=== PATIENT | male | born 1945 | race Caucasian/White ===

== ENCOUNTER → 2018-01-28 | Day surgery (SDC) | payer MEDICARE, OTHER ==
[~2018-01-28] MED LIST: LACTATED RINGERS 1,000 ML IV SCH; PROPOFOL 10 MG/ML 20 ML VIAL IV ONE
[2018-01-28 13:44] VITALS: TEMP 97.8
--- NOTE | 2018-01-28 14:39 | P.PCN ---
Date of Procedure: 01/28/18 Procedure(s) Performed: Procedure: Total colonoscopy. Preoperative diagnosis: Screening for neoplasia, patient has history of polyps. Postoperative diagnosis: Mild sigmoid diverticulosis with no evidence of acute diverticulitis, strictures, polyps or cancer. Preparation: HalfLytely prep. Sedation: Was provided by anesthesia. Brief clinical history: The patient is a 72-year-old male who is scheduled for this evaluation because of history of polyps. His last exam was in November 2012. The patient has no abdominal complaints, bleeding or anemia. Procedure: With the patient on his left lateral decubitus position and after informed consent and adequate sedation, the perianal area was inspected and it did not show any fissures or fistulas. There were no masses felt on digital rectal examination. The Olympus CFQ 160 L videocolonoscope was then inserted in the rectum in the usual fashion and advanced to the cecum. There was occasional small diverticular orifices seen scattered in the sigmoid with no evidence of acute diverticulitis or strictures. The mucosa appeared healthy. No polyps or tumors were seen. I retroflexed the endoscope in the rectum before the endoscope was withdrawn. The patient tolerated the procedure well. Plan: The patient was reassured. Discussed dietary measures. He will follow up with you as planned and I recommended repeat exam in 5 years.
[2018-01-28 14:54] VITALS: RESP 18
[2018-01-28 15:05] VITALS: BP 122/79; PULSE 60
== END ==
LOC: ORWHC2ENDO 11:58
DX: Z12.11 Encounter for screening for malignant neoplasm of colon (principal); K57.30 Diverticulosis of large intestine without perforation or abscess without bleeding; Z86.010 Personal history of colon polyps; I10 Essential (primary) hypertension; Z88.0 Allergy status to penicillin; Z79.899 Other long term (current) drug therapy
CPT/HCPCS: J2704; G0105; 45378

== ENCOUNTER 2019-11-27 16:13 | Inpatient (IN) | payer MEDICARE, OTHER ==
[2019-11-27] MEDS ORDERED: METOPROLOL TARTRATE 5 MG/5 ML VIAL IVP STA (17:13)
[2019-11-27] MEDS ORDERED: SODIUM CHLORIDE 0.9% 1,000 ML IV STA (17:13)
[2019-11-27 17:37] LABS: Basophils # (A) 0.1 k/uL (0-0.2); Basophils % (A) 1 %; Eosinophils # (A) 0.2 k/uL (0-0.7); Eosinophils % (A) 1 %; HCT 48.2 % (39.0-53.0); HGB 16.5 gm/dL (13.0-17.5); Lymphocytes # (A) 1.3 k/uL (1.0-4.8); Lymphocytes % (A) 13 %; MCH 31.8 pg (25.0-35.0); MCHC 34.2 g/dL (31.0-37.0); MCV 92.9 fL (80.0-100.0); Mean Platelet Volume 8.1; Monocytes # (A) 0.5 k/uL (0-1.0); Monocytes % (A) 5 %; Neutrophils # (A) 8.2 k/uL (1.3-7.7); Neutrophils % (A) 79 %; Platelet Count 164 k/uL (150-450); RBC 5.19 m/uL (4.30-5.90); RDW 12.7 % (11.5-15.5); WBC 10.3 k/uL (3.8-10.6)
--- NOTE | 2019-11-27 17:41 | ED ---
Arrhythmia/Palpitations HPI - General Chief Complaint: Arrhythmia/Palpitations Stated Complaint: AFIB Time Seen by Provider: 11/27/19 16:19 Source: patient Mode of arrival: EMS Limitations: no limitations - History of Present Illness Initial Comments: This is a 73-year-old male here for evaluation history of high blood pressure no significant medication changes. Patient has no pain coming with a near-syncopal event prior to arrival. Seen at primary care as EKG is found to be in A. fib with RVR patient felt severe distress lightheaded dizzy and weak by primary care comes in the exudate upon arrival to ER A. fib has resolved patient feels better and has no exact current complaints. No recent travel history or sick contacts denies drug or alcohol abuse MD Complaint: "skipped beats", palpitations, irregular heart beat -: minutes(s) Context: occurred during rest Arrhythmia History: other (No prior history) Associated Symptoms: shortness of breath, near-syncope Treatments Prior to Arrival: other (Patient converted spontaneously) - Related Data Home Medications Medication Instructions Recorded Confirmed Enalapril/Hydrochlorothiazide 20 mg PO DAILY 01/28/18 01/28/18 [Enalapril-Hctz 10-25 mg Tablet] Multivitamin [Men's Multi-Vitamin] 1 tab PO DAILY 01/28/18 01/28/18 Allergies Allergy/AdvReac Type Severity Reaction Status Date / Time Penicillins Allergy Unknown Verified 11/27/19 16:25 Childhood Review of Systems ROS Statement: Those systems with pertinent positive or pertinent negative responses have been documented in the HPI. ROS Other: All systems not noted in ROS Statement are negative. Past Medical History Past Medical History: Hypertension Additional Past Medical History / Comment(s): SEASONAL ALLERGIES History of Any Multi-Drug Resistant Organisms: None Reported Past Surgical History: Tonsillectomy Past Anesthesia/Blood Transfusion Reactions: No Reported Reaction Past Psychological History: No Psychological Hx Reported Smoking Status: Former smoker Past Alcohol Use History: None Reported Past Drug Use History: None Reported - Past Family History Mother Family Medical History: Cancer Father Family Medical History: Diabetes Mellitus Additional Family Medical History / Comment(s): PATIENT STATES FATHER OF AN ANEURYSM General Exam Limitations: no limitations General appearance: alert, in no apparent distress Head exam: Present: atraumatic, normocephalic, normal inspection Eye exam: Present: normal appearance, PERRL, EOMI. Absent: scleral icterus, conjunctival injection, periorbital swelling ENT exam: Present: normal exam, mucous membranes moist Neck exam: Present: normal inspection. Absent: tenderness, meningismus, lymphadenopathy Respiratory exam: Present: normal lung sounds bilaterally. Absent: respiratory distress, wheezes, rales, rhonchi, stridor Cardiovascular Exam: Present: regular rate, normal rhythm, normal heart sounds. Absent: systolic murmur, diastolic murmur, rubs, gallop, clicks GI/Abdominal exam: Present: soft, normal bowel sounds. Absent: distended, tenderness, guarding, rebound, rigid Extremities exam: Present: normal inspection, full ROM, normal capillary refill. Absent: tenderness, pedal edema, joint swelling, calf tenderness Back exam: Present: normal inspection Neurological exam: Present: alert, oriented X3, CN II-XII intact Psychiatric exam: Present: normal affect, normal mood Skin exam: Present: warm, dry, intact, normal color. Absent: rash Course Vital Signs 11/27/19 11/27/19 16:23 18:00 Temperature 98.3 F Pulse Rate 88 72 Respiratory 18 18 Rate Blood Pressure 141/82 104/61 O2 Sat by Pulse 99 95 Oximetry - Reevaluation(s) Reevaluation #1: 11/27/19 18:30 medical record including prehospital EKG reviewed EKG shows A. fib with RVR Reevaluation #2: 11/27/19 18:30 Patient remains not in nature fibrillation, normal sinus rhythm - Consultations Consultation #1: spoke w SOund ok for admission Medical Decision Making - Medical Decision Making 73 male to be evaluated regarding new onset atrial fibrillation, he was in atrial fibrillation with RVR prior to arrival with a near syncopal event, here in the ER and remained in sinus rhythm will admit for cardiology to evaluate - Lab Data Result diagrams: 11/27/19 16:25 11/27/19 16:25 Lab Results 11/27/19 11/27/19 11/27/19 Range/Units 16:25 16:25 16:25 WBC 10.3 (3.8-10.6) k/uL RBC 5.19 (4.30-5.90) m/uL Hgb 16.5 (13.0-17.5) gm/dL Hct 48.2 (39.0-53.0) % MCV 92.9 (80.0-100.0) fL MCH 31.8 (25.0-35.0) pg MCHC 34.2 (31.0-37.0) g/dL RDW 12.7 (11.5-15.5) % Plt Count 164 (150-450) k/uL Neutrophils % 79 % Lymphocytes % 13 % Monocytes % 5 % Eosinophils % 1 % Basophils % 1 % Neutrophils # 8.2 H (1.3-7.7) k/uL Lymphocytes # 1.3 (1.0-4.8) k/uL Monocytes # 0.5 (0-1.0) k/uL Eosinophils # 0.2 (0-0.7) k/uL Basophils # 0.1 (0-0.2) k/uL PT (9.0-12.0) sec INR (<1.2) APTT (22.0-30.0) sec Sodium 142 (137-145) mmol/L Potassium 3.7 (3.5-5.1) mmol/L Chloride 104 (98-107) mmol/L Carbon Dioxide 29 (22-30) mmol/L Anion Gap 9 mmol/L BUN 25 H (9-20) mg/dL Creatinine 0.94 (0.66-1.25) mg/dL Est GFR (CKD-EPI)AfAm >90 (>60 ml/min/1.73 sqM) Est GFR (CKD-EPI)NonAf 81 (>60 ml/min/1.73 sqM) Glucose 82 (74-99) mg/dL Calcium 9.4 (8.4-10.2) mg/dL Magnesium 2.1 (1.6-2.3) mg/dL Total Bilirubin 0.6 (0.2-1.3) mg/dL AST 29 (17-59) U/L ALT 28 (4-49) U/L Alkaline Phosphatase 57 (38-126) U/L Creatine Kinase 123 (55-170) U/L CK-MB (CK-2) 2.2 (0.0-2.4) ng/mL Troponin I 0.017 (0.000-0.034) ng/mL Total Protein 7.5 (6.3-8.2) g/dL Albumin 4.5 (3.5-5.0) g/dL TSH 5.270 H (0.465-4.680) mIU/L 11/27/19 Range/Units 16:25 WBC (3.8-10.6) k/uL RBC (4.30-5.90) m/uL Hgb (13.0-17.5) gm/dL Hct (39.0-53.0) % MCV (80.0-100.0) fL MCH (25.0-35.0) pg MCHC (31.0-37.0) g/dL RDW (11.5-15.5) % Plt Count (150-450) k/uL Neutrophils % % Lymphocytes % % Monocytes % % Eosinophils % % Basophils % % Neutrophils # (1.3-7.7) k/uL Lymphocytes # (1.0-4.8) k/uL Monocytes # (0-1.0) k/uL Eosinophils # (0-0.7) k/uL Basophils # (0-0.2) k/uL PT 10.4 (9.0-12.0) sec INR 1.0 (<1.2) APTT 24.9 (22.0-30.0) sec Sodium (137-145) mmol/L Potassium (3.5-5.1) mmol/L Chloride (98-107) mmol/L Carbon Dioxide (22-30) mmol/L Anion Gap mmol/L BUN (9-20) mg/dL Creatinine (0.66-1.25) mg/dL Est GFR (CKD-EPI)AfAm (>60 ml/min/1.73 sqM) Est GFR (CKD-EPI)NonAf (>60 ml/min/1.73 sqM) Glucose (74-99) mg/dL Calcium (8.4-10.2) mg/dL Magnesium (1.6-2.3) mg/dL Total Bilirubin (0.2-1.3) mg/dL AST (17-59) U/L ALT (4-49) U/L Alkaline Phosphatase (38-126) U/L Creatine Kinase (55-170) U/L CK-MB (CK-2) (0.0-2.4) ng/mL Troponin I (0.000-0.034) ng/mL Total Protein (6.3-8.2) g/dL Albumin (3.5-5.0) g/dL TSH (0.465-4.680) mIU/L - Radiology Data Radiology results: report reviewed (Chest x-rays negative for acute disease), image reviewed Disposition Clinical Impression: Atrial fibrillation, Atrial fibrillation with RVR, Near syncope Disposition: ADMITTED IP TO THIS [facility] Condition: Good Is patient prescribed a controlled substance at d/c from ED?: No Referrals: Elvira José DO [Primary Care Provider] - 1-2 days
[2019-11-27 17:43] LABS: Partial Thromboplastin Time 24.9 sec (22.0-30.0); Prothrombin Time 10.4 sec (9.0-12.0)
[2019-11-27 17:44] LABS: ALT 28 U/L (4-49); AST 29 U/L (17-59); African American GFR (CKD) >90 (>60 ml/min/1.73 sqM); Albumin 4.5 g/dL (3.5-5.0); Alkaline Phosphatase 57 U/L (38-126); Anion Gap 9 mmol/L; Blood Urea Nitrogen 25 mg/dL (9-20); Calcium 9.4 mg/dL (8.4-10.2); Carbon Dioxide 29 mmol/L (22-30); Chloride 104 mmol/L (98-107); Creatine Kinase 123 U/L (55-170); Glucose 82 mg/dL (74-99); Magnesium 2.1 mg/dL (1.6-2.3); Non-African American GFR(CKD) 81 (>60 ml/min/1.73 sqM); Potassium 3.7 mmol/L (3.5-5.1); Sodium 142 mmol/L (137-145); Total Bilirubin 0.6 mg/dL (0.2-1.3); Total Protein 7.5 g/dL (6.3-8.2)
--- NOTE | 2019-11-27 17:56 | XR ---
EXAMINATION: XR chest 2V DATE AND TIME: 11/27/2019 5:34 PM CLINICAL INDICATION: PHH; dysrhythmia TECHNIQUE: Departmental protocol COMPARISON: None FINDINGS: The lungs are clear. The pleural spaces are negative. The cardiac silhouette is not enlarged. The remainder of the mediastinal silhouette is unremarkable. The skeletal structures and soft tissues are negative for acute findings. IMPRESSION: NO ACUTE PROCESS.
[2019-11-27 18:09] LABS: Creatine Kinase MB 2.2 ng/mL (0.0-2.4); Troponin I 0.017 ng/mL (0.000-0.034)
[2019-11-27] MEDS ORDERED: NITROGLYCERIN SL TABS 0.4 MG TAB SUBLINGUAL PRN (18:28)
[2019-11-27] MEDS ORDERED: ASPIRIN 81 MG PO STA (18:28)
[2019-11-27] MEDS ORDERED: HEPARIN SODIUM,PORCINE 5,000 UNIT/ML 1 ML VIAL IV ONE (18:28)
[2019-11-27] MEDS: HEPARIN SOD,PORK IN 0.45% NACL 25,000 UNIT in 0.45% NACL 1 250ML.BAG IV SCH (22:15)
[2019-11-27] MEDS: SODIUM CHLORIDE 0.9% 1,000 ML IV SCH (22:16)
[2019-11-27] MEDS: METOPROLOL TARTRATE 50 MG TAB PO SCH (22:59)
[2019-11-28] MEDS: SODIUM CHLORIDE 0.9% 1,000 ML IV SCH ×2 (05:39→14:51)
[2019-11-28 06:06] LABS: Mean Platelet Volume 7.6; Platelet Count 140 k/uL (150-450)
[2019-11-28 06:18] LABS: Cholesterol 188 mg/dL (<200); HDL Cholesterol 30 mg/dL (40-60); LDL Cholesterol,Calculated 126 mg/dL (0-99); Triglycerides 158 mg/dL (<150)
[2019-11-28] MEDS: HEPARIN SODIUM,PORCINE 5,000 UNIT/ML 1 ML VIAL IV PRN ×2 (06:41→14:21)
[2019-11-28] MEDS: METOPROLOL TARTRATE 50 MG TAB PO SCH ×2 (08:28→21:55)
[2019-11-28] MEDS: ASPIRIN 325 MG TAB PO SCH (08:28)
--- NOTE | 2019-11-28 10:29 | P.HPIM ---
History of Present Illness This is a pleasant 73 years old male with past medical history of hypertension. He is a patient of Dr. Topete. 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 He denies chest pain or other dyspnea. No abdominal pain, no nausea vomiting. No fever. No coughing. He went home and checked blood pressure was fine but he notices heart rate was on the high side at 101 so he decided to see his primary care doctor who did EKG showed A. fib and for him to emergency room, repeat EKG in ED shows sinus rhythm He denies smoking or illicit drugs, occasional alcohol Vitals look stable. Monitor showing unremarkable CBC, BMP, INR, liver enzymes. Serial troponins are negative at 0.017, 0.0-6 and 0.016. Edges elevated at 5.2, T4 is pending. EKG showing normal sinus rhythm at [address]-T changes and QTC of 383. Chest x-ray: No acute process. In the emergency room patient got metoprolol 1 and started on heparin drip Review of Systems CONSTITUTIONAL: No fever, no malaise, no fatigue. HEENT: No recent visual problems or hearing problems. Denied any sore throat. CARDIOVASCULAR: No orthopnea, PND, no palpitations, no syncope. PULMONARY: No shortness of breath, no cough, no hemoptysis. GASTROINTESTINAL: No diarrhea, no nausea, no vomiting, no abdominal pain. Normoactive bowel sounds. NEUROLOGICAL: No headaches, no weakness, no numbness. HEMATOLOGICAL: Denies any bleeding or petechiae. GENITOURINARY: Denies any burning micturition, frequency, or urgency. MUSCULOSKELETAL/RHEUMATOLOGICAL: Denies any joint pain, swelling, or any muscle pain. ENDOCRINE: Denies any polyuria or polydipsia. Past Medical History Past Medical History: Hypertension Additional Past Medical History / Comment(s): SEASONAL ALLERGIES History of Any Multi-Drug Resistant Organisms: None Reported Past Surgical History: Tonsillectomy Past Anesthesia/Blood Transfusion Reactions: No Reported Reaction Past Psychological History: No Psychological Hx Reported Smoking Status: Former smoker Past Alcohol Use History: None Reported Past Drug Use History: None Reported Additional Drug Use History / Comment(s): PATIENT STATES HE QUIT SMOKING IN 1984 - Past Family History Mother Family Medical History: Cancer Father Family Medical History: Diabetes Mellitus Additional Family Medical History / Comment(s): PATIENT STATES FATHER OF AN ANEURYSM Medications and Allergies Home Medications Medication Instructions Recorded Confirmed Type Enalapril/Hydrochlorothiazide 20 mg PO DAILY 01/28/18 11/27/19 History [Enalapril-Hctz 10-25 mg Tablet] Multivitamin [Men's Multi-Vitamin] 1 tab PO DAILY 01/28/18 11/27/19 History Allergies Allergy/AdvReac Type Severity Reaction Status Date / Time Penicillins Allergy Unknown Verified 11/27/19 19:23 Childhood Physical Exam Vitals: Vital Signs Temp Pulse Pulse Resp BP BP Pulse Ox 11/28/19 07:47 97.6 F 65 18 120/84 96 11/28/19 04:59 97.9 F 66 18 114/67 98 11/28/19 02:21 98.0 F 53 L 16 117/87 99 11/28/19 00:00 97.9 F 55 L 18 111/89 97 11/27/19 20:00 97.0 F L 53 L 18 101/80 99 11/27/19 19:00 58 L 18 109/64 97 11/27/19 18:00 72 18 104/61 95 11/27/19 16:23 98.3 F 88 18 141/82 99 Intake and Output 11/27/19 11/28/19 11/28/19 22:59 06:59 14:59 Intake Total 240 84.382 Balance 240 84.382 Intake: Intake, IV Titration 84.382 Amount Heparin Sod,Pork in 0.45% 84.382 NaCl 25,000 unit In 0.45 % NaCl 1 250ml.bag @ 11.9 UNITS/KG/HR 9.986 mls/hr IV .Q24H [facility] Rx#: [id number] Oral 240 Other: Voiding Method Toilet Toilet # Voids 1 Weight 83.915 kg 83.915 kg GENERAL: The patient is alert and oriented x3, not in any acute distress. Well developed, well nourished. HEENT: Pupils are round and equally reacting to light. EOMI. No scleral icterus. No conjunctival pallor. Normocephalic, atraumatic. No pharyngeal erythema. No thyromegaly. CARDIOVASCULAR: S1 and S2 present. No murmurs, rubs, or gallops. PULMONARY: Chest is clear to auscultation, no wheezing or crackles. ABDOMEN: Soft, nontender, nondistended, normoactive bowel sounds. No palpable organomegaly. MUSCULOSKELETAL: No joint swelling or deformity. EXTREMITIES: No cyanosis, clubbing, or pedal edema. NEUROLOGICAL: Gross neurological examination did not reveal any focal deficits. SKIN: No rashes. No petechiae Results CBC & Chem 7: 11/28/19 05:37 11/27/19 16:25 Labs: Abnormal Lab Results - Last 24 Hours (Table) 11/27/19 11/27/19 11/28/19 Range/Units 16:25 16:25 05:37 Plt Count 140 L (150-450) k/uL Neutrophils # 8.2 H (1.3-7.7) k/uL BUN 25 H (9-20) mg/dL Triglycerides (<150) mg/dL LDL Cholesterol, Calc (0-99) mg/dL HDL Cholesterol (40-60) mg/dL TSH 5.270 H (0.465-4.680) mIU/L 11/28/19 Range/Units 05:37 Plt Count (150-450) k/uL Neutrophils # (1.3-7.7) k/uL BUN (9-20) mg/dL Triglycerides 158 H (<150) mg/dL LDL Cholesterol, Calc 126 H (0-99) mg/dL HDL Cholesterol 30 L (40-60) mg/dL TSH (0.465-4.680) mIU/L Thrombosis Risk Factor Assmnt - Choose All That Apply Each Factor Represents 1 point: Obesity (BMI >25) Each Risk Factor Represents 2 Points: Age 61-74 years Thrombosis Risk Factor Assessment Total Risk Factor Score: 3 Thrombosis Risk Factor Assessment Level: Moderate Risk Assessment and Plan Assessment: New onset of paroxysmal A. fib and RVR Presyncope, secondary to above Hypertension Plan: This is a pleasant 73 years old male who presents with new onset A. fib. Continue with heparin drip, continue with beta tohsia. Cardiology consult Labs and medication were reviewed.. Continue same treatment. Continue with symptomatic treatment. Resume home medication. Monitor lytes and vitals. DVT and GI prophylaxis. Further recommendations of the clinical course of the patient DVT prophylaxis: heparin GI Prophylaxis: Pepcid PT/OT: Pending Prognosis is guarded
[2019-11-28] MEDS: HEPARIN SOD,PORK IN 0.45% NACL 25,000 UNIT in 0.45% NACL 1 250ML.BAG IV SCH ×2 (14:54→21:55)
[2019-11-29] MEDS: SODIUM CHLORIDE 0.9% 1,000 ML IV SCH ×3 (00:47→21:26)
[2019-11-29 03:58] LABS: Basophils % (A) 1 %; Eosinophils # (A) 0.2 k/uL (0-0.7); Eosinophils % (A) 3 %; HCT 45.3 % (39.0-53.0); HGB 14.7 gm/dL (13.0-17.5); Lymphocytes # (A) 1.6 k/uL (1.0-4.8); Lymphocytes % (A) 22 %; MCHC 32.4 g/dL (31.0-37.0); MCV 92.6 fL (80.0-100.0); Mean Platelet Volume 8.1; Monocytes # (A) 0.4 k/uL (0-1.0); Monocytes % (A) 6 %; Neutrophils # (A) 4.9 k/uL (1.3-7.7); Neutrophils % (A) 66 %; Platelet Count 148 k/uL (150-450); RBC 4.89 m/uL (4.30-5.90); RDW 12.7 % (11.5-15.5); WBC 7.4 k/uL (3.8-10.6)
[2019-11-29] MEDS: HEPARIN SODIUM,PORCINE 5,000 UNIT/ML 1 ML VIAL IV PRN (04:15)
[2019-11-29 04:30] LABS: T4, Free (Free Thyroxine) 0.77 ng/dL (0.78-2.19)
[2019-11-29] MEDS: ASPIRIN 325 MG TAB PO SCH (08:35)
[2019-11-29] MEDS: METOPROLOL TARTRATE 50 MG TAB PO SCH (08:35)
[2019-11-29] MEDS ORDERED: APIXABAN 5 MG TAB PO SCH (10:00)
[2019-11-29] MEDS ORDERED: HEPARIN SODIUM,PORCINE 5,000 UNIT/ML 1 ML VIAL IV PRN (12:22)
--- NOTE | 2019-11-29 13:28 | P.PN ---
Subjective This is a pleasant 73 years old male with past medical history of hypertension. He is a patient of Dr. Topete. 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 He denies chest pain or other dyspnea. No abdominal pain, no nausea vomiting. No fever. No coughing. He went home and checked blood pressure was fine but he notices heart rate was on the high side at 101 so he decided to see his primary care doctor who did EKG showed A. fib and for him to emergency room, repeat EKG in ED shows sinus rhythm He denies smoking or illicit drugs, occasional alcohol Vitals look stable. Monitor showing unremarkable CBC, BMP, INR, liver enzymes. Serial troponins are negative at 0.017, 0.0-6 and 0.016. Edges elevated at 5.2, T4 is pending. EKG showing normal sinus rhythm at [address]-T changes and QTC of 383. Chest x-ray: No acute process. In the emergency room patient got metoprolol 1 and started on heparin drip 11/29/2019 Patient with no chest pain or dyspnea, no presyncope or other episodes of passing out. Let us look stable, heart rate is 59, patient is afebrile. CBC showing a stable hemoglobin at 14.7, platelets 148. She is normal at 7.14. PTT is at therapeutic range of 63.1 per protoco as patient is currently on heparin drip. His BMP and electrolytes were unremarkable, creatinine is normal. Liver enzymes not elevated. Serial troponins are negative. His TSH yesterday was mildly elevated at 5.2, repeat TSH today is 7.5 with free T4 is low at 0.7. Triglycerides mildly elevated 158, LDL 126. Cardiology team on consult. Review of systems: CONSTITUTIONAL: No fever, no malaise, no fatigue. HEENT: No recent visual problems or hearing problems. Denied any sore throat. CARDIOVASCULAR: No orthopnea, PND, no palpitations, no syncope. PULMONARY: No shortness of breath, no cough, no hemoptysis. GASTROINTESTINAL: No diarrhea, no nausea, no vomiting, no abdominal pain. Normoactive bowel sounds. NEUROLOGICAL: No headaches, no weakness, no numbness. HEMATOLOGICAL: Denies any bleeding or petechiae. GENITOURINARY: Denies any burning micturition, frequency, or urgency. MUSCULOSKELETAL/RHEUMATOLOGICAL: Denies any joint pain, swelling, or any muscle pain. ENDOCRINE: Denies any polyuria or polydipsia. Active Medications Generic Name Dose Route Start Last Admin Trade Name Bcq PRN Reason Stop Dose Admin Aspirin 325 mg 11/28/19 09:00 11/29/19 08:35 Aspirin PO 325 mg DAILY [facility] Administration Heparin Sodium (Porcine) 0 unit 11/29/19 12:22 Heparin IV PER PROTOCOL PRN Low PTT Protocol Sodium Chloride 1,000 mls @ 100 mls/hr 11/27/19 18:30 11/29/19 00:47 Saline 0.9% IV Not Given .Q10H [facility] Heparin Sodium/Sodium Chloride 250 mls @ 10.004 mls/hr 11/29/19 12:30 25,000 unit/ Sodium Chloride IV .Q24H [facility] Protocol 11.24 UNITS/KG/HR Metoprolol Tartrate 25 mg 11/29/19 21:00 Lopressor PO BID [facility] Nitroglycerin 0.4 mg 11/27/19 18:28 Nitrostat SUBLINGUAL Q5M PRN Chest Pain Warfarin Sodium 5 mg 11/29/19 18:00 Coumadin PO DAILY@1800 [facility] Objective - Vital Signs Vital signs: Vital Signs Temp 97.8 F 11/29/19 08:00 Pulse 59 L 11/29/19 08:00 Resp 18 11/29/19 08:00 BP 112/56 11/29/19 08:00 Pulse Ox 97 11/29/19 08:00 Intake & Output 11/28/19 11/29/19 11/29/19 18:59 06:59 18:59 Intake Total 301.228 287.422 240 Balance 301.228 287.422 240 Weight 89 kg Intake: IV 80 Heparin Sod,Pork in 0.45% 80 NaCl 25,000 unit In 0.45 % NaCl 1 250ml.bag @ 11.9 UNITS/KG/HR 9.986 mls/hr IV .Q24H [facility] Rx#: [id number] Intake, IV Titration 101.228 47.422 Amount Heparin Sod,Pork in 0.45% 101.228 47.422 NaCl 25,000 unit In 0.45 % NaCl 1 250ml.bag @ 11.9 UNITS/KG/HR 9.986 mls/hr IV .Q24H [facility] Rx#: [id number] Oral 120 240 240 Other: Voiding Method Toilet # Voids 1 1 # Bowel Movements 1 - Exam GENERAL: The patient is alert and oriented x3, not in any acute distress. Well developed, well nourished. HEENT: Pupils are round and equally reacting to light. EOMI. No scleral icterus. No conjunctival pallor. Normocephalic, atraumatic. No pharyngeal erythema. No thyromegaly. CARDIOVASCULAR: S1 and S2 present. No murmurs, rubs, or gallops. PULMONARY: Chest is clear to auscultation, no wheezing or crackles. ABDOMEN: Soft, nontender, nondistended, normoactive bowel sounds. No palpable organomegaly. MUSCULOSKELETAL: No joint swelling or deformity. EXTREMITIES: No cyanosis, clubbing, or pedal edema. NEUROLOGICAL: Gross neurological examination did not reveal any focal deficits. SKIN: No rashes. no petechiae. - Labs CBC & Chem 7: 11/29/19 03:37 11/27/19 16:25 Labs: Abnormal Lab Results - Last 24 Hours (Table) 11/28/19 11/29/19 11/29/19 Range/Units 18:34 03:37 03:37 Plt Count 148 L (150-450) k/uL APTT 95.0 H 34.8 H (22.0-30.0) sec TSH (0.465-4.680) mIU/L Free T4 (0.78-2.19) ng/dL 11/29/19 11/29/19 Range/Units 03:37 10:44 Plt Count (150-450) k/uL APTT 63.1 H (22.0-30.0) sec TSH 7.510 H (0.465-4.680) mIU/L Free T4 0.77 L (0.78-2.19) ng/dL Assessment and Plan Assessment: New onset of paroxysmal A. fib and RVR Presyncope, secondary to above hypothyroidism Hypertension Plan: This is a pleasant 73 years old male who presents with new onset A. fib. Continue with heparin drip, continue with beta toshia. Cardiology consult and follow that recommendation. We'll start the patient on small dose of levothyroxine and gradually increase it in view of his A. fib, also patient is going to be discharged on warfarin because his insurance does not cover Eliquis, is going to be discharged on bridging Lovenox, while she has previous medical backgrounds and she will do it. We will keep the patient in the hospital for monitoring and asked the to do the injection today discussed with . Labs and medication were reviewed.. Continue same treatment. Continue with symptomatic treatment. Resume home medication. Monitor lytes and vitals. DVT and GI prophylaxis. Further recommendations of the clinical course of the patient DVT prophylaxis: heparin/Lovenox GI Prophylaxis: Pepcid PT/OT: Low complexity Prognosis is guarded
--- NOTE | 2019-11-29 14:17 | P.CRDCN ---
History of Present Illness History of present illness: This is Tali Escalona PA-C dictating a consult on this patient The patient was interviewed and examined by me as well as by Dr. Reyes Case discussed with Dr. Reyes and he agrees with the plan of care HPI Patient is a 75-year-old male with a past medical history significant for h ypertension, ANNA on CPAP who was sent in by his primary care doctor for evaluation for atrial fibrillation with RVR. Patient states he was at the grocery store when he experienced dizziness with bending down. He stood up and continued to feel very dizzy. He states he felt like he was going to pass out but did not pass out. Denies any chest pain, shortness of breath or palpitations. He has never had symptoms like these before. He went in to see his primary care doctor who found him to be in atrial fibrillation with RVR, rates in the 160s. Upon arrival to the emergency department he had converted to sinus rhythm. Troponins were normal, TSH was elevated He has been started on metoprolol 50 mg twice daily. He has had no further episodes of atrial fibrillation. His pulse did drop down to the 40-50s at night, is currently in the 60s. Patient seen and examined sitting in the chair. States he feels much better. No chest pain, palpitations, dizziness or syncope. Denies history of diabetes Denies history of stroke or heart attack Anemia or any bleeding problems ROS: No fevers, chills or rigors, no cough, phlegm or expectoration, no nausea, vomiting or diarrhea, no hematuria, dysuria, no musculoskeletal complaints, no strokes or seizures, no skin lesions. EXAMINATION: Patient is afebrile, pulse in the 60s, blood pressure 112/56, oxygen saturation 97% on room air Patient seen and examined sitting in the chair, in no acute distress Lungs are clear to auscultation bilaterally, no wheezing rhonchi or crackles Heart is regular, normal S1-S2, no murmurs noted No elevated JVD No lower extremity edema Abdomen soft and nontender to palpation REVIEW OF LABS, ECG & MEDICAL DATA Hemoglobin 14.7, potassium 3.7, BUN 25, creatinine 0.94 LDL 126 TSH 7.5 EKG postconversion shows sinus mechanism without any acute changes IMPRESSION / ASSESSMENT: Symptomatic paroxysmal atrial fibrillation with RVR, currently in sinus rhythm Hypertension Abnormal TSH Dyslipidemia with history of statin myopathy PLAN: CHADSVASC score is 2 for his age and hypertension, anticoagulation is indicated Would recommend novel oral anticoagulants, however the patient was not able to get insurance coverage for them so we will have to go with Coumadin Start Coumadin 5 mg daily and either continue heparin until his INR is therapeutic or may bridge with Lovenox if he would like to go home, management of anticoagulation by primary care team And discussed with the patient that I would recommend statins for stroke and heart attack prevention but he states he will not take a statin. He has had muscle stiffness with statins in the past Management of abnormal TSH by primary care team Past Medical History Past Medical History: Hypertension Additional Past Medical History / Comment(s): SEASONAL ALLERGIES History of Any Multi-Drug Resistant Organisms: None Reported Past Surgical History: Tonsillectomy Past Anesthesia/Blood Transfusion Reactions: No Reported Reaction Past Psychological History: No Psychological Hx Reported Smoking Status: Former smoker Past Alcohol Use History: None Reported Past Drug Use History: None Reported Additional Drug Use History / Comment(s): PATIENT STATES HE QUIT SMOKING IN 1984 - Past Family History Mother Family Medical History: Cancer Father Family Medical History: Diabetes Mellitus Additional Family Medical History / Comment(s): PATIENT STATES FATHER OF AN ANEURYSM Medications and Allergies Home Medications Medication Instructions Recorded Confirmed Type Enalapril/Hydrochlorothiazide 20 mg PO DAILY 01/28/18 11/27/19 History [Enalapril-Hctz 10-25 mg Tablet] Multivitamin [Men's Multi-Vitamin] 1 tab PO DAILY 01/28/18 11/27/19 History Allergies Allergy/AdvReac Type Severity Reaction Status Date / Time Penicillins Allergy Unknown Verified 11/27/19 19:23 Childhood Physical Exam Vitals: Vital Signs Temp Pulse Resp BP Pulse Ox 11/29/19 12:00 54 L 18 158/89 99 11/29/19 08:00 97.8 F 59 L 16 112/56 97 11/29/19 03:40 97.9 F 59 L 18 123/75 95 11/29/19 00:00 98.2 F 54 L 16 106/69 96 11/28/19 20:00 97.7 F 57 L 18 136/71 97 11/28/19 15:43 97.5 F L 60 18 112/68 97 11/28/19 15:30 54 L Intake and Output 11/28/19 11/29/19 11/29/19 22:59 06:59 14:59 Intake Total 120 287.422 480 Balance 120 287.422 480 Intake: Intake, IV Titration 47.422 Amount Heparin Sod,Pork in 0.45% 47.422 NaCl 25,000 unit In 0.45 % NaCl 1 250ml.bag @ 11.9 UNITS/KG/HR 9.986 mls/hr IV .Q24H [facility] Rx#: [id number] Oral 120 240 480 Other: Voiding Method Toilet # Voids 1 1 1 # Bowel Movements 1 Weight 89 kg Results 11/29/19 03:37 11/27/19 16:25 Coagulation 11/28/19 11/29/19 11/29/19 Range/Units 18:34 03:37 10:44 APTT 95.0 H 34.8 H 63.1 H (22.0-30.0) sec CBC 11/29/19 Range/Units 03:37 WBC 7.4 (3.8-10.6) k/uL RBC 4.89 (4.30-5.90) m/uL Hgb 14.7 (13.0-17.5) gm/dL Hct 45.3 (39.0-53.0) % Plt Count 148 L (150-450) k/uL Current Medications Generic Name Dose Route Start Last Admin Trade Name Freq PRN Reason Stop Dose Admin Aspirin 325 mg 11/28/19 09:00 11/29/19 08:35 Aspirin PO 325 mg DAILY [facility] Administration Heparin Sodium (Porcine) 0 unit 11/29/19 12:22 Heparin IV PER PROTOCOL PRN Low PTT Protocol Sodium Chloride 1,000 mls @ 100 mls/hr 11/27/19 18:30 11/29/19 00:47 Saline 0.9% IV Not Given .Q10H [facility] Heparin Sodium/Sodium Chloride 250 mls @ 10.004 mls/hr 11/29/19 12:30 25,000 unit/ Sodium Chloride IV .Q24H [facility] Protocol 11.24 UNITS/KG/HR Levothyroxine Sodium 25 mcg 11/29/19 13:24 Synthroid PO DAILY@0630 [facility] Metoprolol Tartrate 25 mg 11/29/19 21:00 Lopressor PO BID [facility] Nitroglycerin 0.4 mg 11/27/19 18:28 Nitrostat SUBLINGUAL Q5M PRN Chest Pain Warfarin Sodium 5 mg 11/29/19 18:00 Coumadin PO DAILY@1800 [facility] Intake and Output 11/28/19 11/29/19 11/29/19 22:59 06:59 14:59 Intake Total 120 287.422 480 Balance 120 287.422 480 Intake: Intake, IV Titration 47.422 Amount Heparin Sod,Pork in 0.45% 47.422 NaCl 25,000 unit In 0.45 % NaCl 1 250ml.bag @ 11.9 UNITS/KG/HR 9.986 mls/hr IV .Q24H [facility] Rx#: [id number] Oral 120 240 480 Other: Voiding Method Toilet # Voids 1 1 1 # Bowel Movements 1 Weight 89 kg 11/29/19 03:37 11/27/19 16:25
[2019-11-29] MEDS: HEPARIN SOD,PORK IN 0.45% NACL 25,000 UNIT in 0.45% NACL 1 250ML.BAG IV SCH (15:09)
[2019-11-29] MEDS: LEVOTHYROXINE 25 MCG TAB PO SCH (17:35)
[2019-11-29] MEDS: WARFARIN 5 MG TAB PO SCH (17:35)
[2019-11-29] MEDS: METOPROLOL TARTRATE 25 MG TAB PO SCH (21:26)
[2019-11-30] MEDS: LEVOTHYROXINE 25 MCG TAB PO SCH (06:15)
[2019-11-30] MEDS: SODIUM CHLORIDE 0.9% 1,000 ML IV SCH ×3 (06:16→22:34)
[2019-11-30 06:46] LABS: Basophils % (A) 1 %; Eosinophils # (A) 0.2 k/uL (0-0.7); Eosinophils % (A) 3 %; HCT 42.5 % (39.0-53.0); HGB 13.9 gm/dL (13.0-17.5); Lymphocytes # (A) 1.3 k/uL (1.0-4.8); Lymphocytes % (A) 15 %; MCH 30.5 pg (25.0-35.0); MCHC 32.7 g/dL (31.0-37.0); MCV 93.2 fL (80.0-100.0); Mean Platelet Volume 7.9; Monocytes # (A) 0.4 k/uL (0-1.0); Monocytes % (A) 5 %; Neutrophils # (A) 6.4 k/uL (1.3-7.7); Neutrophils % (A) 75 %; Platelet Count 102 k/uL (150-450); RBC 4.55 m/uL (4.30-5.90); RDW 12.8 % (11.5-15.5); WBC 8.5 k/uL (3.8-10.6)
[2019-11-30 06:49] LABS: INR 1.1 (<1.2); Prothrombin Time 11.2 sec (9.0-12.0)
[2019-11-30 07:20] LABS: T4, Free (Free Thyroxine) 0.87 ng/dL (0.78-2.19)
[2019-11-30] MEDS: ASPIRIN 325 MG TAB PO SCH (09:41)
[2019-11-30] MEDS: METOPROLOL TARTRATE 25 MG TAB PO SCH ×2 (09:41→20:10)
--- NOTE | 2019-11-30 11:16 | P.PN ---
Subjective This is a pleasant 73 years old male with past medical history of hypertension. He is a patient of Dr. Topete. 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 He denies chest pain or other dyspnea. No abdominal pain, no nausea vomiting. No fever. No coughing. He went home and checked blood pressure was fine but he notices heart rate was on the high side at 101 so he decided to see his primary care doctor who did EKG showed A. fib and for him to emergency room, repeat EKG in ED shows sinus rhythm He denies smoking or illicit drugs, occasional alcohol Vitals look stable. Monitor showing unremarkable CBC, BMP, INR, liver enzymes. Serial troponins are negative at 0.017, 0.0-6 and 0.016. Edges elevated at 5.2, T4 is pending. EKG showing normal sinus rhythm at [address]-T changes and QTC of 383. Chest x-ray: No acute process. In the emergency room patient got metoprolol 1 and started on heparin drip 11/29/2019 Patient with no chest pain or dyspnea, no presyncope or other episodes of passing out. Let us look stable, heart rate is 59, patient is afebrile. CBC showing a stable hemoglobin at 14.7, platelets 148. She is normal at 7.14. PTT is at therapeutic range of 63.1 per protoco as patient is currently on heparin drip. His BMP and electrolytes were unremarkable, creatinine is normal. Liver enzymes not elevated. Serial troponins are negative. His TSH yesterday was mildly elevated at 5.2, repeat TSH today is 7.5 with free T4 is low at 0.7. Triglycerides mildly elevated 158, LDL 126. Cardiology team on consult. 11/30/2019 Patient has no chest pain or dyspnea. No syncope. However he remains on heparin drip, he started on Coumadin 5 mg and his INR is 1.1 today. Also he was started on levothyroxine 25 g a day, his TSH is 5.7 which is improving and free T4 is 0.87. Patient states that he [id number] from this hospital and he cannot come here to check his INR, also states that he does not wear to go to check his INR. Patient is counseled about the importance of taking his medication, keep his INR level between 2-3, I have also extensive discussion about the management of coumadine and was affected by food and medication. He agrees with coumadine for now. Objective - Vital Signs Vital signs: Vital Signs Temp 96.3 F L 11/30/19 08:05 Pulse 68 11/30/19 08:05 Resp 18 11/30/19 08:05 BP 130/69 11/30/19 08:05 Pulse Ox 98 11/30/19 08:05 Intake & Output 11/29/19 11/30/19 11/30/19 18:59 06:59 18:59 Intake Total 960 240 120 Balance 960 240 120 Weight 89.2 kg Intake: Oral 960 240 120 Other: Voiding Method Toilet # Voids 1 1 - Exam GENERAL: The patient is alert and oriented x3, not in any acute distress. Well developed, well nourished. HEENT: Pupils are round and equally reacting to light. EOMI. No scleral icterus. No conjunctival pallor. Normocephalic, atraumatic. No pharyngeal erythema. No thyromegaly. CARDIOVASCULAR: S1 and S2 present. No murmurs, rubs, or gallops. PULMONARY: Chest is clear to auscultation, no wheezing or crackles. ABDOMEN: Soft, nontender, nondistended, normoactive bowel sounds. No palpable organomegaly. MUSCULOSKELETAL: No joint swelling or deformity. EXTREMITIES: No cyanosis, clubbing, or pedal edema. NEUROLOGICAL: Gross neurological examination did not reveal any focal deficits. SKIN: No rashes. no petechiae. - Labs CBC & Chem 7: 11/30/19 06:06 11/27/19 16:25 Labs: Abnormal Lab Results - Last 24 Hours (Table) 11/29/19 11/30/19 11/30/19 Range/Units 10:44 06:06 06:06 Plt Count 102 L (150-450) k/uL APTT 63.1 H (22.0-30.0) sec TSH 5.710 H (0.465-4.680) mIU/L 11/30/19 Range/Units 06:06 Plt Count (150-450) k/uL APTT 54.0 H (22.0-30.0) sec TSH (0.465-4.680) mIU/L Assessment and Plan Assessment: New onset of paroxysmal A. fib and RVR Presyncope, secondary to above hypothyroidism Hypertension Plan: This is a pleasant 73 years old male who presents with new onset A. fib. Continue with heparin drip, continue with beta toshia. Cardiology consult and follow that recommendation. We'll start the patient on small dose of levothyroxine and gradually increase it in view of his A. fib, also patient is going to be discharged on warfarin because his insurance does not cover Eliquis. it was also sensitive for the patient to discharge him on a blood thinner with no clear plan out to follow-up and check his INR. Labs and medication were reviewed.. Continue same treatment. Continue with symptomatic treatment. Resume home medication. Monitor lytes and vitals. DVT and GI prophylaxis. Further recommendations of the clinical course of the patient DVT prophylaxis: heparin and Coumadin GI Prophylaxis: Pepcid PT/OT: Low complexity Prognosis is guarded
--- NOTE | 2019-11-30 13:59 | ECHOF ---
Referral Reason:afib MEASUREMENTS -------- HEIGHT: 175.3 cm WEIGHT: 83.9 kg BP: 114/67 RVIDd: 3.3 cm (< 3.3) IVSd: 1.1 cm (0.6 - 1.1) LVIDd: 4.5 cm (3.9 - 5.3) LVPWd: 1.2 cm (0.6 - 1.1) IVSs: 1.3 cm LVIDs: 3.4 cm LVPWs: 1.4 cm LA Diam: 3.7 cm (2.7 - 3.8) LAESV Index (A-L): 32.14 ml/m Ao Diam: 3.5 cm (2.0 - 3.7) AV Cusp: 2.0 cm (1.5 - 2.6) MV EXCURSION: 20.130 mm (> 18.000) MV EF SLOPE: 133 mm/s (70 - 150) EPSS: 0.2 cm MV E Max: 0.67 m/s MV DecT: 175 ms MV A Max: 0.67 m/s MV E/A Ratio: 1.01 RAP: 5.00 mmHg FINDINGS -------- Atrial fibrillation. This was a technically good study. The left ventricular size is normal. Left ventricular wall thickness is normal. Overall left vent ricular systolic function is normal with, an EF between 55 - 60 %. Left ventricular fillimg pressur e cannot be estimated due to Atrial fibrillation. The right ventricle is normal in size. The left atrium is mildly dilated. LA is midly dilated 29-33ml/m2. The right atrial size is normal. There is mild aortic valve sclerosis. Trace amount of aortic regurgitation. Mild mitral annular calcification present. Mild mitral regurgitation is present. Mild tricuspid regurgitation present. Right ventricular systolic pressure is normal at < 35 mmHg. There is no evidence of pulmonary hypertension. There is no pulmonic regurgitation present. The aortic root size is normal. Echo free space represents a pericardial fat pad. CONCLUSIONS -------- 1. Atrial fibrillation. 2. This was a technically good study. 3. The left ventricular size is normal. 4. Left ventricular wall thickness is normal. 5. Overall left ventricular systolic function is normal with, an EF between 55 - 60 %. 6. Left ventricular fillimg pressure cannot be estimated due to Atrial fibrillation. 7. The right ventricle is normal in size. 8. The left atrium is mildly dilated. 9. LA is midly dilated 29-33ml/m2. 10. The right atrial size is normal. 11. There is mild aortic valve sclerosis. 12. Trace amount of aortic regurgitation. 13. Mild mitral annular calcification present. 14. Mild mitral regurgitation is present. 15. Mild tricuspid regurgitation present. 16. Right ventricular systolic pressure is normal at < 35 mmHg. 17. There is no evidence of pulmonary hypertension. 18. There is no pulmonic regurgitation present. 19. The aortic root size is normal. 20. Echo free space represents a pericardial fat pad. BRICK [employer]LOADER TENDER: Alma Delia Jimenez RDCS
--- NOTE | 2019-11-30 14:25 | P.PN ---
<Tali Escalona - Last Filed: 11/30/19 14:24> Subjective This is Tali Escalona PA-C dictating a progress note on this patient The patient was interviewed and examined by me as well as by Dr. Reyes Case discussed with Dr. Reyes and he agrees with the plan of care HPI/interval history Patient is a 75-year-old male who presented for evaluation after his PCP found him to be in atrial fibrillation with RVR. He spontaneously converted to sinus rhythm. He has been maintaining sinus rhythm. Heart rates are in the 50s on telemetry. No further episodes of atrial fibrillation. He was started on Coumadin yesterday he was not able to get an oral anticoagulant coverage. INR subtherapeutic this morning. Patient seen and examined sitting in the chair. He has no complaints, denies any dizziness, chest pain, shortness of breath, palpitations, fatigue. States he would like to go home. EXAMINATION Patient is afebrile, pulse in the 60s, respirations 18, blood pressure 130/69, oxygen saturation 98% on room air Patient seen and examined sitting in the chair, in no acute distress Lungs are clear to auscultation bilaterally, no wheezing rhonchi or crackles Heart is regular, normal S1-S2, no murmurs noted REVIEW OF LABS, ECG WBC 8.9, hemoglobin 13.9, platelets 102, INR 1.1 IMPRESSION / ASSESSMENT: Symptomatic paroxysmal atrial fibrillation, maintaining sinus rhythm, has been started on anticoagulation with Coumadin Subtherapeutic INR Hypertension, stable Dyslipidemia, history of statin myopathy PLAN: Patient is clear to go home from a cardiac standpoint on Coumadin with Lovenox bridging and follow-up outpatient Continue metoprolol 25 mg twice a day Objective - Vital Signs Vital signs: Vital Signs Temp 96.3 F L 11/30/19 08:05 Pulse 68 11/30/19 08:05 Resp 18 11/30/19 08:05 BP 130/69 11/30/19 08:05 Pulse Ox 98 11/30/19 08:05 Intake & Output 11/29/19 11/30/19 11/30/19 18:59 06:59 18:59 Intake Total 960 240 720 Balance 960 240 720 Weight 89.2 kg Intake: Oral 960 240 720 Other: Voiding Method Toilet # Voids 1 1 1 - Labs CBC & Chem 7: 11/30/19 06:06 11/27/19 16:25 Labs: Abnormal Lab Results - Last 24 Hours (Table) 11/30/19 11/30/19 11/30/19 Range/Units 06:06 06:06 06:06 Plt Count 102 L (150-450) k/uL APTT 54.0 H (22.0-30.0) sec TSH 5.710 H (0.465-4.680) mIU/L <Braulio Reyes - Last Filed: 11/30/19 14:37> Objective - Vital Signs Vital signs: Vital Signs Temp 96.3 F L 11/30/19 08:05 Pulse 68 11/30/19 08:05 Resp 18 11/30/19 08:05 BP 130/69 11/30/19 08:05 Pulse Ox 98 11/30/19 08:05 Intake & Output 11/29/19 11/30/19 11/30/19 18:59 06:59 18:59 Intake Total 960 240 720 Balance 960 240 720 Weight 89.2 kg Intake: Oral 960 240 720 Other: Voiding Method Toilet # Voids 1 1 1 - Labs CBC & Chem 7: 11/30/19 06:06 11/27/19 16:25 Labs: Abnormal Lab Results - Last 24 Hours (Table) 11/30/19 11/30/19 11/30/19 Range/Units 06:06 06:06 06:06 Plt Count 102 L (150-450) k/uL APTT 54.0 H (22.0-30.0) sec TSH 5.710 H (0.465-4.680) mIU/L
[2019-11-30] MEDS: ENOXAPARIN 80 MG/0.8 ML SYRINGE SQ SCH (15:30)
[2019-11-30] MEDS: HEPARIN SOD,PORK IN 0.45% NACL 25,000 UNIT in 0.45% NACL 1 250ML.BAG IV SCH (15:30)
[2019-11-30] MEDS: WARFARIN 5 MG TAB PO SCH (17:59)
[2019-12-01] MEDS: LEVOTHYROXINE 25 MCG TAB PO SCH (06:21)
[2019-12-01] MEDS: ENOXAPARIN 80 MG/0.8 ML SYRINGE SQ SCH (06:22)
[2019-12-01 06:32] LABS: Basophils % (A) 1 %; Eosinophils # (A) 0.2 k/uL (0-0.7); Eosinophils % (A) 3 %; HCT 44.7 % (39.0-53.0); HGB 14.3 gm/dL (13.0-17.5); Lymphocytes # (A) 1.3 k/uL (1.0-4.8); Lymphocytes % (A) 21 %; MCH 29.8 pg (25.0-35.0); MCV 93.3 fL (80.0-100.0); Mean Platelet Volume 8.2; Monocytes # (A) 0.4 k/uL (0-1.0); Monocytes % (A) 6 %; Neutrophils # (A) 4.2 k/uL (1.3-7.7); Neutrophils % (A) 67 %; Platelet Count 121 k/uL (150-450); RBC 4.79 m/uL (4.30-5.90); RDW 12.9 % (11.5-15.5); WBC 6.2 k/uL (3.8-10.6)
[2019-12-01 06:39] LABS: INR 1.1 (<1.2); Partial Thromboplastin Time 27.4 sec (22.0-30.0); Prothrombin Time 11.1 sec (9.0-12.0)
[2019-12-01 08:27] VITALS: TEMP 98.3
[2019-12-01] MEDS: SODIUM CHLORIDE 0.9% 1,000 ML IV SCH (08:39)
[2019-12-01] MEDS: METOPROLOL TARTRATE 25 MG TAB PO SCH (08:40)
[2019-12-01] MEDS: ASPIRIN 325 MG TAB PO SCH (08:40)
[2019-12-01 12:11] VITALS: BP 135/69; PULSE 59; RESP 20
--- NOTE | 2019-12-01 13:13 | P.PN ---
Subjective This is Tali Escalona PA-C dictating a progress note on this patient The patient was interviewed and examined by me as well as by Dr. Reyes Case discussed with Dr. Reyes and he agrees with the plan of care HPI/interval history Patient is a 75-year-old male who presented for evaluation after his PCP found him to be in atrial fibrillation with RVR. He spontaneously converted to sinus rhythm. He has been maintaining sinus rhythm. Heart rates are in the 50-60s on telemetry. Lowest heart rate was 46 overnight while patient was sleeping. No further episodes of atrial fibrillation. He was started on anticoagulation with Coumadin. INR subtherapeutic this morning. Patient seen and examined sitting in the chair. States he is eager to go home. He has a little tired but has not been sleeping well. Denies any dizziness. He has been walking the hallways without any problems. No shortness of breath or chest pain. EXAMINATION Temperature 98.3F, pulse 59, respirations 20, blood pressure 135/69, oxygen saturation 98% on room air Patient seen and examined sitting in the chair, in no acute distress Lungs are clear to auscultation bilaterally Heart is regular, normal S1-S2, no murmurs rubs or gallops No lower extremity edema REVIEW OF LABS, ECG WBC 6.2, hemoglobin 14.3, platelets 121, INR 1.1 IMPRESSION / ASSESSMENT: Symptomatic paroxysmal atrial fibrillation, maintaining sinus rhythm, has been started on anticoagulation with Coumadin Subtherapeutic INR Hypertension, stable Dyslipidemia, history of statin myopathy PLAN: Patient is clear to go home from a cardiac standpoint on Coumadin with Lovenox bridging and follow-up outpatient Continue metoprolol 25 mg twice a day, may consider reducing the dose in the fut ure if he has symptomatic bradycardia Because of his tendency for low heart rate, future antiarrhythmic drug therapy options are limited if he has recurrence of atrial fibrillation, would consider an ablation Objective - Vital Signs Vital signs: Vital Signs Temp 98.3 F 12/01/19 08:00 Pulse 59 L 12/01/19 12:00 Resp 20 12/01/19 12:00 BP 135/69 12/01/19 12:00 Pulse Ox 98 12/01/19 12:00 Intake & Output 11/30/19 12/01/19 12/01/19 18:59 06:59 18:59 Intake Total 1080 240 230 Balance 1080 240 230 Weight 89.8 kg Intake: Oral 1080 240 230 Other: Voiding Method Toilet # Voids 1 1 2 - Labs CBC & Chem 7: 12/01/19 05:38 11/27/19 16:25 Labs: Abnormal Lab Results - Last 24 Hours (Table) 12/01/19 Range/Units 05:38 Plt Count 121 L (150-450) k/uL
--- NOTE | 2019-12-04 10:10 | P.DS ---
Providers Date of admission: 11/27/19 18:28 Attending physician: Debbie Moses Consults: 11/27/19 18:28 Consult Physician Urgent Consulting Provider: Catalina Maguire Consult Reason/Comments: afib Do you want consulting provider notified?: Yes Primary care physician: Elvira Topete Hospital Course: Diagnoses: New onset of paroxysmal A. fib and RVR Presyncope, secondary to above hypothyroidism Hypertension Hospital course: This is a pleasant 73 years old male with past medical history of hypertension. He is a patient of Dr. Topete. Patient presents because of 3 spells of dizziness happens while he was working at the [employer], one of time was from kneeling to standing position and the second time he sat down on the floor but without falling or loss of consciousness. He denies chest pain or other dyspnea. No abdominal pain, no nausea vomiting. No fever. No coughing. He went home and checked blood pressure was fine but he notices heart rate was on the high side at 101 so he decided to see his primary care doctor who did EKG showed A. fib and for him to emergency room, repeat EKG in ED shows sinus rhythm Patient has been evaluated by a/c technician, it was started on metoprolol 25 mg twice a day and heparin drip, R and switch to warfarin, Eliquis was not covered by his insurance company. Anticoagulation once managed by the a/c technician team which also on Lovenox therapeutic dose for few days for bridging. Also patient will be discharged on Coumadin 5 mg. I discussed the case of his PCP Dr. Topete and he is expected to see him on 12/03/2019 to check his INR and posthospital follow-up, patient is aware of this appointment and he agrees with it to go to check his INR is used to work as java developer and she knows and used to give injections and shown by staff how to give Lovenox injection, the patient is okay with that. Patient symptoms resolved, on the day of discharge she denies chest pain, no dyspnea, no more episodes of syncope/presyncope, no abdominal pain, no nausea vomiting, no change in urine or bowel habits. No fever She was cleared for discharge by cardiology team Problems and management plan were discussed with the patient and he verbalized understanding and acceptance Patient was found stable and can be discharged home however he needs follow-up as an outpatient. Patient was instructed to follow up with PCP within one week and patient agrees. Also patient was instructed to follow up with a/c technician in 1-2 weeks and he agrees. Patient will follow up with Dr. Jenkins and Dr. Topete and he agrees with the appointments and times, please see discharge instruction Gen: patient is a AAOx3, no distress CVS: S1-S2, RRR, no murmur Lungs: B/L CTA, no wheezing Abdomen: soft, no distention, no tenderness, positive bowel sounds Extremity: no leg edema or induration Time spent more than 35 minutes Patient Condition at Discharge: Good Plan - Discharge Summary New Discharge Prescriptions: New Warfarin [Coumadin] 5 mg PO DAILY@1800 #7 tab Metoprolol Tartrate [Lopressor] 25 mg PO BID #60 tab Nitroglycerin Sl Tabs [Nitrostat] 0.4 mg SUBLINGUAL Q5M PRN #20 tab PRN Reason: Chest Pain Levothyroxine Sodium [Synthroid] 25 mcg PO DAILY@0630 #30 tab Enoxaparin [Lovenox] 80 mg SQ Q12H 5 Days #10 syringe Continue Multivitamin [Men's Multi-Vitamin] 1 tab PO DAILY Discontinued Enalapril/Hydrochlorothiazide [Enalapril-Hctz 10-25 mg Tablet] 20 mg PO DAILY Discharge Medication List Multivitamin [Men's Multi-Vitamin] 1 tab PO DAILY 01/28/18 [History] Enoxaparin [Lovenox] 80 mg SQ Q12H 5 Days #10 syringe 12/01/19 [Rx] Levothyroxine Sodium [Synthroid] 25 mcg PO DAILY@0630 #30 tab 12/01/19 [Rx] Metoprolol Tartrate [Lopressor] 25 mg PO BID #60 tab 12/01/19 [Rx] Nitroglycerin Sl Tabs [Nitrostat] 0.4 mg SUBLINGUAL Q5M PRN #20 tab 12/01/19 [Rx] Warfarin [Coumadin] 5 mg PO DAILY@1800 #7 tab 12/01/19 [Rx] Follow up Appointment(s)/Referral(s): Braulio Reyes MD [STAFF PHYSICIAN] - 12/05/19 4:30 pm (Sunday) Elvira Topete DO [Primary Care Provider] - 12/03/19 11:40 am (Sunday) Ambulatory/Diagnostic Orders: Prothrombin Time INR [LAB.AMB] Time Frame: 3 Days, Location: None Selected Patient Instructions/Handouts: A-fib (Atrial Fibrillation) (DC), Hypothyroidism (DC), How to Give a Subcutaneous Injection (DC), Vitamin K in Foods (DC), Safe Use of Anticoagulants (DC) Discharge Disposition: HOME SELF-CARE
== END 2019-12-01 13:57 | disposition home or self-care (01) | DRG 310 ==
LOC: EC 16:13 → 3SCARD 18:28
PROVIDERS: ADMIT Hospitalist; ATTEND Hospitalist
DX: I48.0 Paroxysmal atrial fibrillation (principal); E03.9 Hypothyroidism, unspecified; E78.5 Hyperlipidemia, unspecified; R00.1 Bradycardia, unspecified; I10 Essential (primary) hypertension; G47.33 Obstructive sleep apnea (adult) (pediatric); J30.2 Other seasonal allergic rhinitis; R55 Syncope and collapse; Z79.899 Other long term (current) drug therapy; Z87.891 Personal history of nicotine dependence; Z88.0 Allergy status to penicillin; Z83.3 Family history of diabetes mellitus; Z80.9 Family history of malignant neoplasm, unspecified; Z82.49 Family history of ischemic heart disease and other diseases of the circulatory system
CPT/HCPCS: 36415; 71046; 80053; 80061; 82550; 82553; 83735; 84439; 84443; 84484; 85025; 85049; 85610; 85730; 93005; 93306; 96361; 96365; 96366; 96374; 96376; 99285

== ENCOUNTER → 2022-06-21 | Outpatient (CLI) | payer MEDICARE, OTHER ==
--- NOTE | 2022-06-21 14:10 | US ---
EXAMINATION TYPE: US duplex aorta DATE OF EXAM: 06/21/2022 COMPARISON: 06/14/2015 CLINICAL HISTORY: 76-year-old male Z13.6 SCREENING FOR CARDIOVASCULAR DISORDERS. TECHNIQUE: Multiple sonographic images of the abdominal aorta are obtained. 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 No evidence for AAA.
== END | disposition home or self-care (01) ==
LOC: RADUSWWP 08:41
PROVIDERS: ATTEND Family Medicine
DX: Z13.6 Encounter for screening for cardiovascular disorders (principal)
CPT/HCPCS: 93979